=== PATIENT | female | born 1990 | race Caucasian/White ===

== ENCOUNTER 2018-05-04 16:21 | Observation (INO) | payer OTHER ==
--- NOTE | 2018-05-04 16:21 | EDPHY ---
H & P Time Seen by Provider: 05/04/18 16:21 Constitutional: Initial Vital Signs Temperature (C) 37.0 C 05/04/18 16:27 Heart Rate 70 05/04/18 16:27 Respiratory Rate 18 05/04/18 16:27 Blood Pressure 130/93 H 05/04/18 16:27 O2 Sat (%) 99 05/04/18 16:27 O2 Delivery Mode Room Air Allergies/Adverse Reactions: No Known Allergies Allergy (Unverified 05/04/18 16:30) Home Medications: Medication Instructions Recorded NK [No Known Home Meds] 05/04/18 Medical Decision Making - Diagnostics Imaging Results: Imaging Impressions Tibia/Fibula X-Ray 05/04/18 16:25 Impression: Proximal fibula and distal tibial shaft fractures. Imaging: I viewed and interpreted images myself ED Course/Re-evaluation: CHIEF COMPLAINT: Right leg injury HISTORY OF PRESENT ILLNESS: The patient is a 27 y/o female arriving via EMS for a right leg injury secondary to falling while rock climbing at a gym. The patient was rock climbing when she fell 10-15 feet and landed on her right leg while twisting it on large mats. Upon impact she felt a "splintering feeling" in her leg. She denies hitting her head or loss of consciousness. EMS noted that there was left lower leg deformity but the patient did have a pedal pulse. The patient was given 10mg IV Morphine for pain and 1mg IV Versed for muscle spasms. No fever, headache, body aches, lightheadedness, chest pain, heart palpitations, shortness of breath, cough, abdominal pain, urinary or bowel complaints, numbness, paresthesias. REVIEW OF SYSTEMS: A 10 point review of systems was performed and is negative with the exception of the elements mentioned in the history of present illness. PHYSICAL EXAM: HR, BP, O2 Sat, RR. Temp noted General Appearance: Alert, well hydrated, appropriate, and non-toxic appearing. Head: Atraumatic without scalp tenderness or obvious injury Eyes: Pupils equal, round, reactive to light and accommodation, EOMI, no trauma , no injection. Ears: Clear bilaterally, no perforation, normal landmarks Nose: Atraumatic, no rhinorrhea, clear. Throat: There is no erythema or exudates, no lesions, normal tonsils, mucus membranes moist. Neck: Supple, 2+ carotid upstroke, nontender, no lymphadenopathy. Respiratory: No retractions, no distress, no wheezes, and no accessory muscle use. Lungs are clear to auscultation bilaterally. Cardiovascular: Regular rate and rhythm, no murmurs, rubs, or gallops. Bilateral carotid, radial, dorsalis pedis, and posterior tibial pulses intact. Good capillary refill all extremities. Gastrointestinal: Abdomen is soft, nontender, non-distended, no masses, no rebound, no guarding, no peritoneal signs. Musculoskeletal: Obvious deformity of the lower right tibia with excessive swelling on medial aspect over the fracture site. Due to this swelling there is concern for compartment syndrome. The joint's above and below the injury are intact, the fracture is not open, she is neurovascularly intact, and there is no tenting of the skin, Otherwise normal active ROM of all extremities, atraumatic. Neurological: Alert, appropriate, and interactive. The patient has normal DTRs and non-focal cranial nerves, motor, sensory, and cerebellar exam. Skin: No rashes, good turgor, no nodules on palpation. Past medical history: Denies Past surgical history: Denies Family history: Denies Social history: Friend at bedside, employed, does not abuse drugs or alcohol DIAGNOSTICS/PROCEDURES/CRITICAL CARE TIME: Left leg x-ray: Rotated Maisonneuve fracture (proximal fibula and distal tibia fracture) Procedure: Splint placement. A Orthoglass posterior splint was applied to the right lower leg by the tech. The anterior portion of the splint will remain open to check for compartment syndrome. After application of the splint I returned and re-examined the patient. The splint was adequately immobilizing the joint and distal to the splint the patient's circulation and sensation was intact. DIFFERENTIAL DIAGNOSIS: The differential diagnosis for the patient's leg injury included but was not limited to fracture, ligamentous injury, contusion, muscular strain. MEDICAL DECISION MAKING: The patient is a 27 y/o female arriving via EMS for a right leg injury secondary to falling 10-15 feet while rock climbing at a gym. Upon impact she felt a "splintering feeling" in her leg. EMS noted that there was left lower leg deformity but the patient did have a pedal pulse. The patient was given 10mg IV Morphine for pain and 1mg IV Versed for muscle spasms. On exam there is an obvious deformity of the lower tibia with excessive swelling on medial aspect over the fracture site. Due to this swelling there is concern for compartment syndrome. The joint's above and below the injury are intact, the fracture is not open, she is neurovascularly intact, and there is no tenting of the skin. The patient is declining pain medication at this time. Left lower leg x-ray ordered. 1639: I reviewed patient's x-ray which reveals a Maisonneuve fracture. I will page the orthopedic surgeon. 1641: I consulted with Dr. Garcia, orthopedic surgeon, regarding this patient. I also discussed my concerns of an anterior compartment syndrome developing. He will consult on this patient. 1650: I consulted with Dr. Garcia after he reviewed the patient's x-ray. Patient will be placed in a posterior splint with the anterior portion of the splint open to check for compartment syndrome. She will be admitted for surgery tomorrow and remain NPO after midnight. Patient is comfortable with plan for admission. Labs ordered; 1L IV NS administered. Departure - Departure Disposition: [facility] Inpatient Acute Clinical Impression: Maisonneuve fracture Qualifiers: Encounter type: initial encounter Fracture type: closed Fracture alignment: displaced Laterality: right Qualified Code(s): S82.861A - Displaced Maisonneuve' s fracture of right leg, initial encounter for closed fracture Condition: Fair Report Scribed for: Camron Scruggs Report Scribed by: Mary Ríos Date of Report: 05/04/18 Time of Report: 16:22
[2018-05-04] MEDS ORDERED: NS 1,000 ML IV ONE (17:03)
[2018-05-04] MEDS ORDERED: TEMAZEPAM 15 MG CAP PO PRN (17:29)
[2018-05-04] MEDS ORDERED: ACETAMINOPHEN 325 MG TAB PO PRN (17:29)
[2018-05-04] MEDS ORDERED: ONDANSETRON DISINTEGRATING 4 MG TAB PO PRN (17:29)
[2018-05-04] MEDS ORDERED: ONDANSETRON 4 MG/2 ML VIAL IVP PRN (17:29)
[2018-05-04] MEDS ORDERED: LR 1,000 ML IV SCH (17:30)
[2018-05-04] MEDS ORDERED: ceFAZolin 2 GM/DEXTROSE 100 ML IV ONE (17:33)
[2018-05-04 17:41] LABS: PLATELET COUNT 280 10^3/uL (150-400)
[2018-05-04 17:57] LABS: INR 0.99 (0.83-1.16); PROTIME(PATIENT) 12.7 SEC (12.0-15.0)
[2018-05-04] MEDS: HYDROmorphONE/DILAUDID 1 MG/ML INJ IVP PRN ×3 (18:35→23:42)
[2018-05-04] MEDS: oxyCODONE IR 5 MG TAB PO PRN ×2 (22:19→22:58)
[2018-05-05] MEDS: HYDROmorphONE/DILAUDID 1 MG/ML INJ IVP PRN ×4 (01:18→06:01)
[2018-05-05] MEDS ORDERED: DIAZEPAM 5 MG TAB PO PRN (01:45)
[2018-05-05] MEDS: oxyCODONE IR 5 MG TAB PO PRN ×4 (02:20→21:02)
[2018-05-05] MEDS ORDERED: ceFAZolin 2 GM/DEXTROSE 100 ML IV ONE (06:00)
--- NOTE | 2018-05-05 07:27 | SOAPPROG ---
SOAP Progress Note Assessment/Plan: Assessment:27yo F with R tib/fib fx. Plan: Plan for intramedullary nailing this morning Patient had difficulty with pain control overnight. Required IV and p. O. Medications as well as muscle relaxants She has been NPO and has signed her consent 05/05/18 07:24 Subjective: Difficulty with pain control overnight. Received IV Dilaudid, p.o. Oxycodone in p.o. Valium. Denies numbness or tingling. Able to wiggle her wiggle her toes without increased pain Objective: Vital Signs Temp Pulse Resp BP Pulse Ox 36.8 C 78 16 106/62 97 05/05/18 04:43 05/05/18 04:43 05/05/18 04:43 05/05/18 04:43 05/05/18 04:43 Laboratory Results 05/04/18 17:25 05/04/18 17:25 05/04/18 05/05/18 05/06/18 05:59 05:59 05:59 Intake Total 2000 Balance 2000 PT 12.7 SEC (12.0-15.0) 05/04/18 17:25 INR 0.99 (0.83-1.16) 05/04/18 17:25 Awake alert and oriented Mild distress Easy nonlabored breathing Right lower extremity: Apscual wrap and Webril removed compartments soft and compressible no increased pain except over fracture site Sensation intact to light touch L4-S1 Motor intact to EHL FHL without pain actively and passively Palpable DP PT pulses ICD10 Worksheet Patient Problems: Problems Problem Status Onset Maisonneuve fracture Acute
[2018-05-05] MEDS ORDERED: BUPIVACAINE/EPI 0.5% 30 ML SDV ONE (07:37)
[2018-05-05] MEDS ORDERED: POLYMYXIN B SULFATE 500,000 UNIT/10 ML SYR IRR ONE (07:38)
[2018-05-05] MEDS ORDERED: BACITRACIN 50,000 UNITS/10 ML SYR IRR ONE (07:38)
--- NOTE | 2018-05-05 07:40 | GHP ---
[f rep st] HISTORY AND PHYSICAL DATE OF ADMISSION: 05/04/2018 TIME SEEN: Approximately 1730. REASON FOR CONSULTATION: Right lower extremity injury. HISTORY OF PRESENT ILLNESS: This is a 27-year-old otherwise healthy female who was rock climbing at a gym, fell approximately 10 to 12 feet, landing directly on her right lower extremity. She recalls a twisting. She landed and hearing multiple pops and snaps, and inability to weight bear afterwards. She was taken to the emergency department where imaging was taken. She denies head trauma, loss of consciousness, numbness, tingling, chest pain, or shortness of breath. REVIEW OF SYSTEMS: 10-point review of systems are negative except for HPI. PAST MEDICAL HISTORY: None. PAST SURGICAL HISTORY: None. MEDICATIONS: None. ALLERGIES: None. SOCIAL HISTORY: Denies significant alcohol, tobacco or drug use. She is a batch maker. PHYSICAL EXAM: GENERAL APPEARANCE: She is awake, alert, and oriented x3, in moderate distress, tear ful at times. She has nonlabored breathing. Examination of her right lower extremity reveals soft c ompartments of all 4 compartments of the lower extremities. Sensation is intact to light touch from L4-S1. She has palpable DP, PT pulses. Motor intact to EHL, FHL. She has pain and difficulty with tibialis and gastrocsoleus secondary to injury. IMAGING: Reveals a distal one third spiral fracture of the tibia as well as proximal fibula fracture . Vital signs are stable. LABORATORY DATA: Unremarkable with the exception of mild leukocytosis likely related to trauma. ASSESSMENT/PLAN: A 27-year-old female with a right tibia-fibula fracture. We discussed operative an d nonoperative treatments, and the risks, benefits, pros and cons of each. She elected to proceed wi operative fixation, specifically intramedullary nailing. She understands the risks associated wit h surgery which include, but are not limited to, bleeding, infection, damage to surrounding anatomic structures, persistent knee pain, stiffness of the knee and/or ankle, malunion, nonunion, hardware fa ilure, symptomatic hardware, and repeat surgery. The patient verbalized understanding and signed her consent, wishes to proceed with surgery. /[id number]/MODL
--- NOTE | 2018-05-05 07:55 | PDANEPAE ---
ANE History of Present Illness 27 yo for lara r tibia ANE Past Medical History - Cardiovascular History Hx Hypertension: No Hx Arrhythmias: No Hx Chest Pain: No Hx Coronary Artery / Peripheral Vascular Disease: No Hx CHF / Valvular Disease: No Hx Palpitations: No - Pulmonary History Hx COPD: No Hx Asthma/Reactive Airway Disease: No Hx Recent Upper Respiratory Infection: No Hx Oxygen in Use at Home: No Hx Sleep Apnea: No Sleep Apnea Screening Result - Last Documented: Negative - Endocrine History Hx Diabetes: No - Chronic Pain History Chronic Pain: No ANE Review of Systems Review of Systems: - Exercise capacity METS (RN): 4 METS ANE Patient History - Allergies Allergies/Adverse Reactions: No Known Allergies Allergy (Unverified 05/04/18 16:30) - Home Medications Home Medications: NK [No Known Home Meds] 05/04/18 [Last Taken Unknown] - NPO status NPO Status: no food or drink >8 hours NPO Since - Liquids (Date): 05/05/18 NPO Since - Liquids (Time): 00:00 NPO Since - Solids (Date): 05/05/18 NPO Since - Solids (Time): 00:00 - Anes Hx Anes Hx: no prior problems - Smoking Hx Smoking Status: Never smoked ANE Labs/Vital Signs - Labs Result Diagrams: 05/04/18 17:25 05/04/18 17:25 - Vital Signs Blood Pressure: 106/62 Heart Rate: 78 Respiratory Rate: 16 O2 Sat (%): 97 Height: 5 ft 6 in Weight: 68.039 kg ANE Physical Exam - Airway Neck exam: FROM Mallampati Score: Class 1 - Pulmonary Pulmonary: no respiratory distress - Cardiovascular Cardiovascular: regular rate and rhythym - ASA Status ASA Status: I ANE Anesthesia Plan Anesthesia Plan: general endotracheal anesthesia
[2018-05-05] MEDS ORDERED: fentaNYL 250 MCG/5 ML INJ ONE (07:59)
[2018-05-05] MEDS ORDERED: PROPOFOL/EMULSION 500 MG/50 ML BOTTLE IV ONE (07:59)
[2018-05-05] MEDS ORDERED: ROCURONIUM 100 MG/10 ML VIAL ONE (08:01)
[2018-05-05] MEDS ORDERED: MEPERIDINE 25 MG/0.5 ML AMP IVP PRN (09:21)
[2018-05-05] MEDS ORDERED: NALOXONE HCL 0.4 MG/ML INJ IVP PRN (09:21)
[2018-05-05] MEDS ORDERED: ONDANSETRON 4 MG/2 ML VIAL IVP PRN (09:21)
[2018-05-05] MEDS ORDERED: HYDROmorphONE/DILAUDID 2 MG/ML INJ IVP PRN (09:21)
[2018-05-05] MEDS ORDERED: fentaNYL 100 MCG/2 ML INJ IVP PRN (09:21)
--- NOTE | 2018-05-05 09:24 | POSTOPPROG ---
Post Op Note Date of Operation: 05/05/18 Surgeon: Franc Garcia Hat And Cap Opener: MD Igor Anesthesiologist: Preet Anesthesia: GET(General Endotracheal) Pre-op Diagnosis: Left tib/fib fracture Post-op Diagnosis: same Procedure: Left tibia IMN and closed reduction of fibula Inf/Abcess present in the surg proc area at time of surgery?: No EBL: 50-100 (100)
[2018-05-05] MEDS ORDERED: fentaNYL 100 MCG/2 ML INJ ONE (09:33)
--- NOTE | 2018-05-05 09:46 | POSTANESTH ---
Post Anesthetic Evaluation Cardiovascular Status: Normal, Stable Respiratory Status: Normal, Stable Level of Consciousness/Mental Status: Can Participate in Eval Pain Control: Adequate, Prn Tx Ordered Nausea/Vomiting Control: Adequate, Prn Tx Ordered Complications Possibly Related to Anesthesia: None Noted
--- NOTE | 2018-05-05 10:36 | ASMTCMCOM ---
CM Note CM Note Notes: Pt is a 27y/o female who was brought to the ED with a right maisonneuve fracture, following a fall at a climbing gym; she was 10-15 ft high and fell onto mats. She had surgery this morning with a left tibia IMN and closed reduction of fibula. OT/PT have been ordered; CM will follow for recommendations. D/C Plan: TBD Date Signed: 05/05/2018 10:35 AM Electronically Signed By:Marylou Arnett
[2018-05-05] MEDS: ceFAZolin 2 GM/DEXTROSE 100 ML IV SCH ×2 (14:46→21:04)
[2018-05-06] MEDS: oxyCODONE IR 5 MG TAB PO PRN ×4 (01:30→09:21)
--- NOTE | 2018-05-06 10:56 | SOAPPROG ---
SOAP Progress Note Assessment/Plan: Assessment:27yo F POD 1 s/p R tibia IMN Plan: WBAT with PT/OT Analgesics: Oxy, tylenol DVT prophylaxis - mechanical, ambulation, foot/ankle pumps Disposition: home today after PT/OT 05/05/18 07:24 05/06/18 10:51 Subjective: Pain improved status post nailing. Using p.o. Oxycodone for pain control. Denies fevers chills nausea vomiting chest pain shortness of breath. Does admit to some localized lateral knee numbness. Does not radiate to the foot Objective: Vital Signs Temp Pulse Resp BP Pulse Ox 36.9 C 83 16 116/55 L 97 05/06/18 08:07 05/06/18 08:07 05/06/18 08:07 05/06/18 08:07 05/06/18 08:07 Laboratory Results 05/04/18 17:25 05/04/18 17:25 05/05/18 05/06/18 05/07/18 05:59 05:59 05:59 Intake Total 1999 2875 Output Total 2310 Balance 1999 565 PT 12.7 SEC (12.0-15.0) 05/04/18 17:25 INR 0.99 (0.83-1.16) 05/04/18 17:25 Awake alert and oriented Mild distress Easy nonlabored breathing Right lower extremity: Dressings c/d/i compartments soft and compressible no increased pain except over fracture site Sensation intact to light touch L4-S1 Motor intact to EHL FHL without pain actively and passively Palpable DP PT pulses - Pending Discharge Pending Discharge Within 24 Hours: Yes Pending Discharge Date: 05/06/18 Pending Discharge Time: 13:00 ICD10 Worksheet Patient Problems: Problems Problem Status Onset Fracture of distal end of tibia Acute Fracture of proximal end of fibula Acute
[2018-05-06 12:35] VITALS: BP 111/72
[2018-05-06] MEDS ORDERED: oxyCODONE IR 5 MG TAB PO PRN (13:30)
--- NOTE | 2018-05-06 16:19 | ASMTCMCOM ---
CM Note CM Note Notes: Patient discharged independent home with family. Date Signed: 05/06/2018 04:18 PM Electronically Signed By:Rupal Riley
--- NOTE | 2018-05-06 16:46 | ASDISCHSUM ---
Discharge Information Plan Status:Acute Transfer Medically Cleared to Leave:05/06/2018 Discharge Date:05/06/2018 03:58 PM CM D/C Disposition:Home, Routine, Self-Care ADT D/C Disposition:Home, Routine, Self-Care Projected Discharge Date:05/06/2018 12:00 AM Transportation at D/C:Family Discharge Delay Reason: Follow-Up Date:05/06/2018 12:00 AM Discharge Slot:2 - 12:01 pm - 18:00 pm Final Diagnosis:right maisonnueve fracture Placement Information Patient Contact Information Contact Name:MATT Relationship:Sister Address: Work Phone: [facility]:[place] Alternate Phone: State/Zip Code:[place] Email: Financial Information Financial Class:HMO and PPO Plans Primary Plan Desc:[employer] Primary Plan Number:[id number] Secondary Plan Desc: Secondary Plan Number: Assessment Information [facility] CM Progress Note CM Note CM Note Notes: Pt is a 27y/o female who was brought to the ED with a right maisonneuve fracture, following a fall at a climbing gym; she was 10-15 ft high and fell onto mats. She had surgery this morning with a left tibia IMN and closed reduction of fibula. OT/PT have been ordered; CM will follow for recommendations. D/C Plan: TBD Date Signed: 05/05/2018 10:35 AM Electronically Signed By:Marylou Arnett [facility] CM Progress Note CM Note CM Note Notes: Patient discharged independent home with family. Date Signed: 05/06/2018 04:18 PM Electronically Signed By:Rupal J Pless Intervention Information
--- NOTE | 2018-05-07 04:59 | GOP ---
[f rep st] OPERATIVE REPORT DATE OF OPERATION: 05/05/2018 SURGEON: Franc Garcia MD AIR CREW MEMBER: Kelvin Costa MD. Legal Specialist was required for the procedure due to the complexity of the case, patient's condition for positioning, prepping, draping, retraction, fracture reduction, and cl osure. PREOPERATIVE DIAGNOSIS: Right proximal fibula and distal tibia fractures. POSTOPERATIVE DIAGNOSIS: Right proximal fibula and distal tibia fractures. PROCEDURE PERFORMED: Right tibia closed reduction intramedullary nailing, closed reduction of the ti mamadou, closed reduction of the proximal fibula. FINDINGS: INDICATIONS: A 27-year-old female who sustained a right tib-fib fracture while rock climbing. She f ell directly onto her right lower extremity, felt multiple snaps and pops. I extensively discussed t he risks and benefits of the procedure, pros and cons of operative and nonoperative treatment. The p atient elected to proceed with operative treatment and consent was signed. DESCRIPTION OF PROCEDURE: The patient was seen in the preoperative holding area. The right lower ex tremity was identified and marked. She was taken the operating room and induced under general anesth esia on her hospital bed. She was then transferred to the flat Nicholas table. The right lower extre mity was prepped and draped in the usual sterile fashion. Time-out was performed. Patient name, lat erality, procedure, antibiotics, and allergies were confirmed. Marcaine 0.25% was injected into the medial parapatellar longitudinal starting point incision. A 10 blade was used to make a skin incision just medial to the patellar tendon. Sharp dissection was made down through the medial retinaculum and to expose the prepatellar fat pad. A portion of the fat pad was excised. A guide pin was placed at the approximated starting point. Starting point was confirm ed under fluoroscopy with both AP and lateral x-rays. This was inserted into the intramedullary jack l of the tibia and confirmed under x-ray. Entry reamer was used to open the starting point of the pr oximal tibia. A beaded guidewire was then placed down the intramedullary canal. Fracture reduction was confirmed under fluoroscopy during guidewire advancement down to the distal tibial physeal scar. The canal was then successively reamed to 10 mm for a 9 mm nail. The length was measured to be appr oximately 350 mm for a 345 mm nail. The nail was advanced down to the distal tibial physeal scar. R eduction was again confirmed both on AP and lateral as well as rotational reduction. The guidewire w as then removed. The aiming arm for the proximal locking screw was placed. A small medial incision was made. Triple cannula was used to drill from medial to lateral for the proximal locking screw. M easurement was made for the appropriate screw length and the screw was placed. We then moved distall y and utilized perfect round valley technique for the distal locking screws. Medial to lateral direction o f 2 distal locking screws was completed and their length and position were confirmed fluoroscopically . Final x-rays were then taken, AP and laterals of the distal aspect of the nail, the fracture site, and the proximal aspect. All wounds were copiously irrigated. The locking screw sites were closed with 3-0 Vicryl and spencer. The proximal longitudinal incision was closed with 0 Vicryl in the deep patellar tendon and medial retinaculum/joint capsule, subcutaneous tissue with 2-0 Vicryl, and skin with 3-0 Monocryl, Dermabond, Steri-Strips, Telfa and Tegaderm. At the end of the case all surgical counts were correct. The patient was safely awakened, extubated, and taken to the recovery room in s table condition. Compartments were soft and compressible. Pain was well controlled. Sensation was intact to light touch from L4 to S1. She had intact EHL and FHL. COMPLICATIONS: None. IMPLANTS: Include a Synthes 9 x 345 mm intramedullary nail with 1 proximal locking screw and 2 dista l locking screws. /[id number]/MODL
== END 2018-05-06 15:58 | disposition home or self-care (01) ==
LOC: INTOOBSV 16:55 → F3N 17:46
PROVIDERS: ADMIT Orthopaedic Surgery; ATTEND Orthopaedic Surgery
PROC: 0QSJ0ZZ Reposition Right Fibula, Open Approach (ICD-10-PCS; principal; 2018-05-04)
PROC: 0QSG06Z Reposition Right Tibia with Intramedullary Internal Fixation Device, Open Approach (ICD-10-PCS; principal; 2018-05-04)
PROC: 2W3LX1Z Immobilization of Right Lower Extremity using Splint (ICD-10-PCS; 2018-05-04)
DX: S82.861A Displaced Maisonneuve's fracture of right leg, initial encounter for closed fracture (principal); W17.89XA Other fall from one level to another, initial encounter; Y93.31 Activity, mountain climbing, rock climbing and wall climbing; Y92.838 Other recreation area as the place of occurrence of the external cause; Y99.9 Unspecified external cause status
CPT/HCPCS: 27759; 29505; 73590; 76000; 96361; 96374; 96375; 96376; 97110; 97116; 97161; 97165; 99285; G0378; C1713; J0690; J1170; J2704; J3010